=== PATIENT | female | born 1940 | race Caucasian/White ===

== ENCOUNTER 2017-11-24 18:26 | Inpatient (IN) ==
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
--- NOTE | 2017-11-24 21:17 | CT ---
EXAM DATE: 11/24/2017 8:58 PM EDT AGE/SEX: 76 years / Female INDICATIONS: Altered mental status. CLINICAL DATA: This is the patient's initial encounter. Patient reports that signs and symptoms have been present for 1 day and indicates a pain score of 0/10. MEDICAL/SURGICAL HISTORY: . Brain tumor. None. RADIATION DOSE: 56.35 CTDI (mGy) COMPARISON: No prior exams available for comparison. TECHNIQUE: CT of the head without contrast. Using automated exposure control and adjustment of the mA and/or kV according to patient size, radiation dose was kept as low as reasonably achievable to ob tain optimal diagnostic quality images. DICOM format image data is available electronically for revi ew and comparison. FINDINGS: Cerebrum: The ventricles are normal for age. No evidence of midline shift, mass lesion, hemorrhage or acute infarction. No extraaxial fluid collections are seen. Mild encephalomalacia is seen in the right frontal lobe. Patient has had a previous right frontal craniotomy. Posterior Fossa: The cerebellum and brainstem are intact. The 4th ventricle is midline. The cerebe llopontine angle is unremarkable. Extracranial: The visualized portion of the orbits is intact. Skull: Previous right frontal craniotomy. The calvaria is acutely intact. No evidence of skull frac ture. CONCLUSION: 1. No acute intracranial abnormality demonstrated. 2. Surgical changes of the right frontal lobe. No perceptible recurrent mass on these noncontrast im ages. . Electronically signed by: Markus Briones MD 11/24/2017 9:16 PM EDT
[2017-11-24 22:16] LABS: Baso # (Auto) 0.1 th/mm3 (0.0-0.2); Baso % (Auto) 1.4 % (0.0-2.0); Eos # (Auto) 0.4 th/mm3 (0.0-0.4); Eos % (Auto) 5.9 % (0.0-4.0); Hematocrit 39.5 % (35.0-46.0); Hemoglobin 12.9 gm/dL (11.6-15.3); Lymph # (Auto) 2.8 th/mm3 (1.0-4.8); Lymph % (Auto) 41.8 % (9.0-44.0); Mean Corpuscular HGB Conc 32.8 % (32.0-36.0); Mean Corpuscular Hemoglobin 30.4 pg (27.0-34.0); Mean Corpuscular Volume 92.6 fL (80.0-100.0); Mean Platelet Volume 8.5 fL (7.0-11.0); Mono # (Auto) 0.8 th/mm3 (0.0-0.9); Mono % (Auto) 12.5 % (0.0-8.0); Neut # (Auto) 2.6 th/mm3 (1.8-7.7); Neut % (Auto) 38.4 % (16.0-70.0); Platelet Count 358 th/mm3 (150-450); Red Blood Count 4.26 mil/mm3 (4.00-5.30); Red Cell Distribution Width 14.3 % (11.6-17.2); White Blood Count 6.7 th/mm3 (4.0-11.0)
[2017-11-24 22:47] LABS: Alanine Aminotransferase 24 U/L (10-53); Albumin 3.8 g/dL (3.4-5.0); Anion Gap 9 meq/L (5-15); Aspartate Aminotransferase 22 U/L (15-37); Blood Urea Nitrogen 17 mg/dL (7-18); Calcium 9.6 mg/dL (8.5-10.1); Carbon Dioxide 28.8 meq/L (21.0-32.0); Chloride 105 meq/L (98-107); Glomerular Filtration Rate 73 mL/min (>89); Glucose,Random 82 mg/dL (74-106); Sodium 143 meq/L (136-145)
[2017-11-24 22:57] LABS: Alkaline Phosphatase 130 U/L (45-117); Total Protein 8.7 g/dL (6.4-8.2)
[2017-11-24 23:22] LABS: Bilirubin,Urine Negative (Negative); Clarity,Urine Clear (Clear); Color,Urine Yellow (Yellw/Straw); Glucose,Urine (UA) Negative (Negative); Leukocyte Esterase,Urine Trace (Negative); Nitrite,Urine Negative (Negative); Specific Gravity,Urine 1.012 (1.002-1.035); Squamous Epithelial Cell,Urine 1 /hpf (0-5)
[2017-11-24 23:29] LABS: Amphetamine Screen,Urine Neg (Neg); Barbiturate Screen,Urine Neg (Neg); Cannabinoid Screen,Urine Neg (Neg); Cocaine Screen,Urine Neg (Neg)
[2017-11-24 23:43] LABS: Opiate Screen,Urine Neg (Neg)
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
[2017-11-25] MEDS ORDERED: Aluminum/Magnesium/Simethacone Susp 30 ML UDC PO PRN (09:40)
[2017-11-25] MEDS ORDERED: LORazepam 0.5 MG Tablet PO PRN (09:40)
[2017-11-25] MEDS: levETIRAcetam 500 MG Tablet PO SCH ×2 (17:43→20:37)
[2017-11-25] MEDS: Senna/Docusate Sodium 8.6/50 MG Tablet PO SCH (20:37)
[2017-11-25] MEDS: ALPRAZolam 0.25 MG Tablet PO SCH (20:38)
[2017-11-26 10:01] LABS: Calcium 9.7 mg/dL (8.5-10.1); Carbon Dioxide 29.7 meq/L (21.0-32.0); Potassium 4.1 meq/L (3.5-5.1)
[2017-11-26 10:05] LABS: Chol/HDL Ratio 3.39 Ratio; HDL Cholesterol 46.2 mg/dL (40.0-60.0)
[2017-11-26] MEDS: Senna/Docusate Sodium 8.6/50 MG Tablet PO SCH ×2 (10:09→21:25)
[2017-11-26] MEDS: Escitalopram 10 MG Tablet PO SCH (10:10)
[2017-11-26] MEDS: levETIRAcetam 500 MG Tablet PO SCH ×2 (10:10→21:25)
[2017-11-26] MEDS: ALPRAZolam 0.25 MG Tablet PO SCH ×2 (10:10→21:25)
[2017-11-26 16:10] LABS: Hemoglobin A1c 5.5 % (4.3-6.0)
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
--- NOTE | 2017-11-26 17:41 | P.PN ---
Physical Exam Vital signs: Vital Signs 11/25/17 18:26 11/26/17 05:09 Temperature 97.3 F L 97.6 F Pulse Rate 98 H 77 Respiratory Rate 20 16 Blood Pressure 123/65 156/87 H Pulse Oximetry 95 93 L Intake & Output 11/25/17 11/26/17 11/26/17 18:59 06:59 18:59 Weight 84.3 kg 84.9 kg Other: Weight On Admission 84.3 kg Results - Labs CBC & Chem 7: 11/24/17 19:29 11/26/17 08:53 Laboratory Results - last 24 hr 11/26/17 11/26/17 08:53 08:53 Sodium 142 Potassium 4.1 Chloride 105 Carbon Dioxide 29.7 Anion Gap 7 BUN 15 Creatinine 0.86 Estimated GFR 64 L Random Glucose 86 Hemoglobin A1c 5.5 Calcium 9.7 Triglycerides 124 Cholesterol 157 LDL Cholesterol, Calc 86 HDL Cholesterol 46.2 Cholesterol/HDL Ratio 3.39
--- NOTE | 2017-11-26 17:41 | P.CON ---
History of Present Illness Service: [facility] Consult date: 11/26/17 Requesting Physician: Jaya Fuchs Reason for Consult: Assist with medical management Primary Care Provider: David Dominguez MD Chief Complaint: "nervous breakdown, headache" History of Present Illness: Patient is a 76-year-old female with past medical history of hysterectomy, seizure, brain tumor who initially came into the hospital under [place] act by police department. Review of records patient allegedly had to take an intentional overdose of Xanax approximately 6 tablets. Patient is now admitted to inpatient psychiatry and for further evaluation. Consulted for assistance with medical management. Patient seen and examined today. She is calm and collected. States that she has a brain lesion that she had chemotherapy and radiation treatment about 2 weeks ago. States that she needs 15 cycles to complete. She said her next cycle would be dictated by her oncologist in the [place] area Dr. Lacey. Patient states that she came into the hospital because she had a nervous breakdown regarding her who is trying to sell her house. Denies SI/HI. States she just had a breakdown and deep depression. Complaints of headache, weakness, constipation. Denies pain and discomfort. Denies SOB/ dyspnea. Denies chest pain, palpitations, headaches, dizziness. Denies fevers, chills, n/ v/d. Denies dysuria. Review of Systems All other systems reviewed negative except as stated in HPI PMFSH - History History Provided By: Patient - Medical History Medical History: Medical History (Last Updated 11/26/17 @ 17:57 by ASHLEY Monge) H/O: hysterectomy (Acute) Anxiety FH: chemotherapy FH: radiation therapy Seizures - Surgical History Surgical History: Surgical History (Last Reviewed 11/26/17 @ 17:55 by ASHLEY Monge) H/O brain surgery - Family History Family History: Family History (Last Updated 11/26/17 @ 17:58 by ASHLEY Monge) Other Parents - Social History I have reviewed the patient's Social History: Yes - Tobacco History Second Hand Smoke Exposure: No Smoking Status: Never smoker - Alcohol History How Often Do You Have a Drink Containing Alcohol: 4 or more times a week - Substance Use History Substance History: No History of Abuse - Travel History Recent Travel in the [facility] Within the Last 8 Weeks: No Recent Travel Out of the Country Within the Last 8 Weeks: No - Immunization History Tetanus Immunization: Unsure Hx Influenza Vaccine This Season: No Medications and Allergies Active Medications: Active Medications Acetaminophen (Tylenol) 650 mg PO Q4H PRN PRN Reason: PAIN 1-10 AND/OR FEVER >101F Al Hydrox/Mg Hydrox/Simethicone (Mag-Al Plus Susp Liq) 30 ml PO Q6H PRN PRN Reason: DYSPEPSIA Al Hydroxide/Mg Hydroxide (Milk Of Magnesia Liq) 30 ml PO Q12H PRN PRN Reason: Mild Constipation Alprazolam (Xanax) 0.25 mg PO BID [facility] Last Admin: 11/26/17 10:10 Dose: 0.25 mg Atorvastatin Calcium (Lipitor) 40 mg PO DAILY [facility] Last Admin: 11/26/17 10:05 Dose: 40 mg Escitalopram Oxalate (Lexapro) 10 mg PO DAILY [facility] Last Admin: 11/26/17 10:10 Dose: 10 mg Levetiracetam (Keppra) 500 mg PO Q12HR [facility] Last Admin: 11/26/17 10:10 Dose: 500 mg Lorazepam (Ativan) 0.5 mg PO Q12H PRN PRN Reason: MODERATE TO SEVERE ANXIETY Senna/Docusate Sodium ([place]-Colace) 1 tab PO BID [facility] Last Admin: 11/26/17 10:09 Dose: 1 tab Allergies Allergy/AdvReac Type Severity Reaction Status Date / Time No Allergy Information Allergy Unverified 11/24/17 19:32 Available Home Medications Medication Instructions Recorded Confirmed Type alprazolam [Xanax] 0.25 mg PO BID 11/24/17 11/25/17 History atorvastatin [Lipitor] 40 mg PO DAILY 11/25/17 11/25/17 History escitalopram oxalate [Lexapro] 10 mg PO DAILY 11/25/17 11/25/17 History hydrocodone-acetaminophen [[place]] 1 tab PO Q12HR PRN 11/25/17 11/25/17 History levetiracetam [Keppra] 500 mg PO Q12H 11/25/17 11/25/17 History Physical Exam Vital signs: Vital Signs 11/25/17 18:26 11/26/17 05:09 Temperature 97.3 F L 97.6 F Pulse Rate 98 H 77 Respiratory Rate 20 16 Blood Pressure 123/65 156/87 H Pulse Oximetry 95 93 L Intake & Output 11/25/17 11/26/17 11/26/17 18:59 06:59 18:59 Weight 84.3 kg 84.9 kg Other: Weight On Admission 84.3 kg Narrative: GENERAL: This is a well-nourished, well-developed patient, in no apparent distress. SKIN: Warm and dry. HEENT: Normocephalic. Pupils equal round and reactive. Nose without bleeding. Airway patent. NECK: Trachea midline. CARDIOVASCULAR: Regular rate and rhythm without murmurs, gallops, or rubs. RESPIRATORY: Clear to auscultation. Breath sounds equal bilaterally. No wheezes , rales, or rhonchi. GASTROINTESTINAL: Abdomen soft, non-tender, nondistended. Bowel Sounds normoactive x4. MUSCULOSKELETAL: Extremities without clubbing, cyanosis. Trace edema bilateral lower extremity NEUROLOGICAL: Awake and alert. No focal neuro deficit. Moves all extremities. Normal speech. Assessment and Plan - Plan Patient is a 76-year-old female with past medical history of hysterectomy, seizure, brain tumor who initially came into the hospital under [place] act by police department. Review of records patient allegedly had to take an intentional overdose of Xanax approximately 6 tablets. Patient is now admitted to inpatient psychiatry and for further evaluation. Consulted for assistance with medical management. Suicidal ideation, depression, anxiety -Managed by psychiatry team Brain tumor Seizure -Continue home medication -Head CT shows no acute intracranial abnormality demonstrated, surgical changes of the right frontal lobe. No perceptible recurrent mass on this noncontrast images. -She will need to follow-up with her oncologist in the outpatient setting for possible continuation of treatment. -Seizure precaution -Tylenol for headache QT prolongation -EKG reviewed with QTC greater than 500 -Possibly related to benzo overdose -Repeat EKG tomorrow -Avoid QT prolongation medication Thyroid nodule reported -TSH within normal 1.930 -Will need thyroid US in 4 weeks to compare in the outpatient DVT prop ambulation Code Status: Full code Discussed Condition With: Patient, nurse Discharge Planning: DC disposition by primary team
--- NOTE | 2017-11-26 18:25 | ECG ---
Date Performed: 11/26/2017 Time Performed: 11:18:34 PTAGE: 76 years EKG: Sinus rhythm LEFT BUNDLE BRANCH BLOCK ABNORMAL ECG NO PREVIOUS TRACING DOCTOR: Gabriel Castillo Interpretating Date/Time 11/26/2017 18:24:16
[2017-11-27] MEDS: Senna/Docusate Sodium 8.6/50 MG Tablet PO SCH ×2 (09:33→20:37)
[2017-11-27] MEDS: levETIRAcetam 500 MG Tablet PO SCH ×2 (09:33→20:38)
[2017-11-27] MEDS: ALPRAZolam 0.25 MG Tablet PO SCH ×2 (09:36→20:38)
[2017-11-27] MEDS: Escitalopram 10 MG Tablet PO SCH (09:37)
[2017-11-27] MEDS: Acetaminophen 325 MG Tablet PO PRN ×2 (12:07→20:37)
--- NOTE | 2017-11-27 16:50 | P.PN ---
Subjective Interval history: Follow-up visit brain tumor, seizure, suicidal ideation, QT prolongation. Patient seen and examined today. Reports she is doing really well. States that she has improved every day. Denies SI/HI. Denies pain and discomfort. Denies SOB/ dyspnea. Denies chest pain, palpitations, headaches, dizziness. Denies fevers, chills, n/v/d. Denies dysuria. Physical Exam Vital signs: Vital Signs 11/26/17 18:00 11/27/17 06:02 Temperature 98.3 F 97.7 F Pulse Rate 60 85 Respiratory Rate 16 16 Blood Pressure 122/57 L 154/80 H Pulse Oximetry 97 95 Narrative: GENERAL: This is a well-nourished, well-developed patient, in no apparent distress. SKIN: Warm and dry. HEENT: Normocephalic. Pupils equal round and reactive. Nose without bleeding. Airway patent. NECK: Trachea midline. CARDIOVASCULAR: Regular rate and rhythm without murmurs, gallops, or rubs. RESPIRATORY: Clear to auscultation. Breath sounds equal bilaterally. No wheezes , rales, or rhonchi. GASTROINTESTINAL: Abdomen soft, non-tender, nondistended. Bowel Sounds normoactive x4. MUSCULOSKELETAL: Extremities without clubbing, cyanosis. Trace edema bilateral lower extremity NEUROLOGICAL: Awake and alert. No focal neuro deficit. Moves all extremities. Normal speech. Results - Labs CBC & Chem 7: 11/24/17 19:29 11/26/17 08:53 Laboratory Results - last 24 hr 11/26/17 08:53 Hemoglobin A1c 5.5 Assessment and Plan - Plan Patient is a 76-year-old female with past medical history of hysterectomy, seizure, brain tumor who initially came into the hospital under [place] act by police department. Review of records patient allegedly had to take an intentional overdose of Xanax approximately 6 tablets. Patient is now admitted to inpatient psychiatry and for further evaluation. Consulted for assistance with medical management. Suicidal ideation, depression, anxiety -Managed by psychiatry team Brain tumor Seizure -Continue home medication -Head CT shows no acute intracranial abnormality demonstrated, surgical changes of the right frontal lobe. No perceptible recurrent mass on this noncontrast images. -She will need to follow-up with her oncologist in the outpatient setting for possible continuation of treatment. -Seizure precaution -Tylenol for headache QT prolongation -EKG reviewed with QTC greater than 500 -Possibly related to benzo overdose -Repeat EKG unchanged. QTc improved 548 -->519 -Avoid QT prolongation medication -If patient continues to stays at the facility, repeat EKG Thursday or Thursday. Thyroid nodule reported -TSH within normal 1.930 -Will need thyroid US in 4 weeks to compare in the outpatient. Repeat TSH in 4 - 6 weeks in the outpatient. -Unable to locate US. DVT prop ambulation Code Status: Full code Discussed Condition With: Patient, nursing Discharge Planning: DC disposition by primary team
--- NOTE | 2017-11-27 18:55 | P.PNPSY ---
Subjective Remarks: Patient seen for follow up; chart review. Discussion with nursing staff reported that patient with no behavioral issues, pleasant, isolative. Patient was found lying on hospital bed, noted to be calm and cooperative. Patient states feeling "good", sleeping well, continues with decreased energy, adequate concentration and appetite. Patient states that she has always had difficulty with making friends and that she had no one to talk to and is now interested in engaging in individual therapy. She reports feeling less depressed, denies SI and mood being "good". Review of Systems All other systems reviewed negative except as stated in HPI Mental Status Examination Appearance: Appropriate Consciousness: Alert Orientation: x4 Motor Activity: Normal gait Speech: Unremarkable Language: Adequate Fund of Knowledge: Adequate Attention and Concentration: Adequate Memory: Unremarkable Mood: Sad, Irritable Affect: Appropriate Thought Process & Associations: Intact, Logical, Goal directed Thought Content: Appropriate Hallucination Type: None Delusion Type: None Suicidal Ideation: Yes (denies at this time) Suicidal Plan: No Suicidal Intention: No Homicidal Ideation: No Homicidal Plan: No Homicidal Intention: No Insight: Fair Judgment: Impulsive Assessment and Plan - Assessment (1) Adjustment disorder Code(s): F43.20 - Adjustment disorder, unspecified Status: Acute - Plan Plan: Patient noted to be less depressed, wanting to engage in therapy and denying any suicidal ideation today. Hospitalist input appreciated. Repeat EKG with Qtc continues to be prolonged at 519ms. Will continue current treatment, continue to monitor mood and behavior. Discharge planning in progress. Justification for Continued Inpatient Stay: At risk for further decompensation at lower level of care. (1) Adjustment disorder Qualifiers: Adjustment disorder type: with depressed mood Qualified Code(s): F43.21 - Adjustment disorder with depressed mood
[2017-11-28] MEDS: Escitalopram 10 MG Tablet PO SCH (09:19)
[2017-11-28] MEDS: ALPRAZolam 0.25 MG Tablet PO SCH ×2 (09:19→21:22)
[2017-11-28] MEDS: Senna/Docusate Sodium 8.6/50 MG Tablet PO SCH ×2 (09:19→21:22)
[2017-11-28] MEDS: levETIRAcetam 500 MG Tablet PO SCH ×2 (09:20→21:22)
[2017-11-28] MEDS: Acetaminophen 325 MG Tablet PO PRN (09:23)
--- NOTE | 2017-11-28 14:03 | P.PN ---
Subjective Interval history: Follow-up visit brain tumor, seizure, suicidal ideation, QT prolongation. Patient seen and examined today. Reports feeling a lot better. Denies SI/HI. Denies pain and discomfort. Denies SOB/ dyspnea. Denies chest pain, palpitations, headaches, dizziness. Denies fevers, chills, n/v/d. Denies dysuria. Physical Exam Vital signs: Vital Signs 11/27/17 18:21 11/27/17 20:00 11/28/17 05:59 Temperature 98.1 F 97.6 F Pulse Rate 83 73 Respiratory Rate 16 Blood Pressure 148/93 H 133/70 Pulse Oximetry 94 L 94 L Intake & Output 11/27/17 11/28/17 11/28/17 18:59 06:59 18:59 Intake Total 240 / 240 Balance 240 / 240 Intake: Oral 240 / 240 Other: Date of Last Bowel Movement 11/27/17 Narrative: GENERAL: This is a well-nourished, well-developed patient, in no apparent distress. SKIN: Warm and dry. HEENT: Normocephalic. Pupils equal round and reactive. Nose without bleeding. Airway patent. NECK: Trachea midline. CARDIOVASCULAR: Regular rate and rhythm without murmurs, gallops, or rubs. RESPIRATORY: Clear to auscultation. Breath sounds equal bilaterally. No wheezes , rales, or rhonchi. GASTROINTESTINAL: Abdomen soft, non-tender, nondistended. Bowel Sounds normoactive x4. MUSCULOSKELETAL: Extremities without clubbing, cyanosis. Trace edema bilateral lower extremity NEUROLOGICAL: Awake and alert. No focal neuro deficit. Moves all extremities. Normal speech. Results - Labs CBC & Chem 7: 11/24/17 19:29 11/26/17 08:53 Assessment and Plan - Plan Patient is a 76-year-old female with past medical history of hysterectomy, seizure, brain tumor who initially came into the hospital under [place] act by police department. Review of records patient allegedly had to take an intentional overdose of Xanax approximately 6 tablets. Patient is now admitted to inpatient psychiatry and for further evaluation. Consulted for assistance with medical management. Suicidal ideation, depression, anxiety -Managed by psychiatry team Brain tumor Seizure -Continue home medication -Head CT shows no acute intracranial abnormality demonstrated, surgical changes of the right frontal lobe. No perceptible recurrent mass on this noncontrast images. -She will need to follow-up with her oncologist in the outpatient setting for possible continuation of treatment. -Seizure precaution -Tylenol for headache QT prolongation -EKG reviewed with QTC greater than 500 -Possibly related to benzo overdose -Repeat EKG unchanged. QTc improved 548 -->519 -Avoid QT prolongation medication -Repeat EKG Thursday or Thursday -Follow up EKG. Extensively discussed with patient. Thyroid nodule reported -TSH within normal 1.930 -Will need thyroid US in 4 weeks to compare in the outpatient. Repeat TSH in 4 - 6 weeks in the outpatient. -Unable to locate US. DVT prop ambulation Code Status: Full Code Discussed Condition With: Patient, nurse Discharge Planning: DC disposition by primary team
--- NOTE | 2017-11-28 15:48 | P.PNPSY ---
Subjective Remarks: Reviewed electronic medical records and discussed case with staff. Follow-up was conducted in patient's room with BALJEET Flaherty present. Patient found lying on bed awake. She states that she feels "good". There was some rectus earlier over the missing sure however, that has been resolved. She reports that she has been sleeping well and her appetite has been good. Her mood is good her affect is euthymic. Mental Status Examination Appearance: Appropriate Consciousness: Alert Orientation: x4 Motor Activity: Normal gait Speech: Unremarkable Language: Adequate Fund of Knowledge: Adequate Attention and Concentration: Adequate Memory: Unremarkable Mood: Sad, Irritable Affect: Appropriate Thought Process & Associations: Intact, Logical, Goal directed Thought Content: Appropriate Hallucination Type: None Delusion Type: None Suicidal Ideation: Yes (denies at this time) Suicidal Plan: No Suicidal Intention: No Homicidal Ideation: No Homicidal Plan: No Homicidal Intention: No Insight: Fair Judgment: Impulsive Assessment and Plan - Assessment (1) Adjustment disorder Code(s): F43.20 - Adjustment disorder, unspecified Status: Acute - Plan Plan: Patient will be reevaluated Thursday by the attending psychiatrist. Continue with current treatment plan. Justification for Continued Inpatient Stay: Moving this patient to a less restrictive environment would likely result in decompensation. (1) Adjustment disorder Qualifiers: Adjustment disorder type: with depressed mood Qualified Code(s): F43.21 - Adjustment disorder with depressed mood
--- NOTE | 2017-11-28 22:26 | ECG ---
Date Performed: 11/27/2017 Time Performed: 10:01:43 PTAGE: 76 years EKG: Sinus rhythm MARKED LEFT AXIS DEVIATION LEFT BUNDLE BRANCH BLOCK ABNORMAL ECG PREVIOUS TRACING : 11/26/2017 11.18 DOCTOR: Italo Uriarte Interpretating Date/Time 11/28/2017 22:20:18
[2017-11-29] MEDS: Acetaminophen 325 MG Tablet PO PRN ×2 (09:56→20:54)
[2017-11-29] MEDS: Escitalopram 10 MG Tablet PO SCH (09:57)
[2017-11-29] MEDS: Senna/Docusate Sodium 8.6/50 MG Tablet PO SCH ×2 (09:58→20:55)
[2017-11-29] MEDS: ALPRAZolam 0.25 MG Tablet PO SCH ×2 (09:58→20:55)
[2017-11-29] MEDS: levETIRAcetam 500 MG Tablet PO SCH ×2 (09:58→20:55)
--- NOTE | 2017-11-29 13:53 | ECG ---
Date Performed: 11/29/2017 Time Performed: 11:59:45 PTAGE: 76 years EKG: Sinus rhythm MARKED LEFT AXIS DEVIATION LEFT BUNDLE BRANCH BLOCK ABNORMAL ECG PREVIOUS TRACING : 11/27/2017 10.01 DOCTOR: Italo Uriarte Interpretating Date/Time 11/29/2017 13:51:21
[2017-11-29 14:19] VITALS: RESP 12
--- NOTE | 2017-11-29 14:47 | P.PNPSY ---
Subjective Chief Complaint: Adjustment Disorder Remarks: Reviewed electronic medical records and discussed case with staff. Follow-up was conducted in patient's room with Winter. Patient states she is tired today. Complaining of chronic back pain that makes it difficult for her to sleep. She is currently constipated and Winter will follow up with some medication. She feels that she has intermittent anxiety related to concerns with her family. She is eating well. She does participate in unit activities. Denies suicidal ideations. Review of Systems All other systems reviewed negative except as stated in HPI Mental Status Examination Appearance: Appropriate Consciousness: Alert Orientation: x4 Motor Activity: Normal gait Speech: Unremarkable Language: Adequate Fund of Knowledge: Adequate Attention and Concentration: Adequate Memory: Unremarkable Mood: Sad, Irritable Affect: Appropriate Thought Process & Associations: Intact, Logical, Goal directed Thought Content: Appropriate Hallucination Type: None Delusion Type: None Suicidal Ideation: No (denies at this time) Suicidal Plan: No Suicidal Intention: No Homicidal Ideation: No Homicidal Plan: No Homicidal Intention: No Insight: Fair Judgment: Impulsive Assessment and Plan - Assessment (1) Adjustment disorder Code(s): F43.20 - Adjustment disorder, unspecified Status: Acute - Plan Plan: Continue with current plan of care. Psychiatry will follow up on Thursday. Justification for Continued Inpatient Stay: Moving patient to a lower level of care may result in her decompensation. (1) Adjustment disorder Qualifiers: Adjustment disorder type: with depressed mood Qualified Code(s): F43.21 - Adjustment disorder with depressed mood
--- NOTE | 2017-11-29 15:09 | P.PN ---
Subjective Interval history: Follow-up visit brain tumor, seizure, suicidal ideation, QT prolongation. Patient seen and examined today. Reports feeling well. Denies SI/HI. Denies pain and discomfort. Denies SOB/ dyspnea. Denies chest pain, palpitations, headaches, dizziness. Denies fevers, chills, n/v/d. Denies dysuria. Physical Exam Vital signs: Vital Signs 11/28/17 18:00 11/29/17 04:56 11/29/17 10:30 Temperature 97.7 F 98.8 F Pulse Rate 80 77 Respiratory Rate 17 16 12 Blood Pressure 175/83 H 152/83 H Pulse Oximetry 94 L 95 Intake & Output 11/28/17 11/29/17 11/29/17 18:59 06:59 18:59 Intake Total 240 / 240 360 / 360 Balance 240 / 240 360 / 360 Intake: Oral 240 / 240 360 / 360 Other: Date of Last Bowel Movement 11/27/17 Narrative: GENERAL: This is a well-nourished, well-developed patient, in no apparent distress. SKIN: Warm and dry. HEENT: Normocephalic. Pupils equal round and reactive. Nose without bleeding. Airway patent. NECK: Trachea midline. CARDIOVASCULAR: Regular rate and rhythm without murmurs, gallops, or rubs. RESPIRATORY: Clear to auscultation. Breath sounds equal bilaterally. No wheezes , rales, or rhonchi. GASTROINTESTINAL: Abdomen soft, non-tender, nondistended. Bowel Sounds normoactive x4. MUSCULOSKELETAL: Extremities without clubbing, cyanosis. Trace edema bilateral lower extremity NEUROLOGICAL: Awake and alert. No focal neuro deficit. Moves all extremities. Normal speech. Results - Labs CBC & Chem 7: 11/24/17 19:29 11/26/17 08:53 Assessment and Plan - Plan Patient is a 76-year-old female with past medical history of hysterectomy, seizure, brain tumor who initially came into the hospital under [place] act by police department. Review of records patient allegedly had to take an intentional overdose of Xanax approximately 6 tablets. Patient is now admitted to inpatient psychiatry and for further evaluation. Consulted for assistance with medical management. Suicidal ideation, depression, anxiety -Managed by psychiatry team Brain tumor Seizure -Continue home medication -Head CT shows no acute intracranial abnormality demonstrated, surgical changes of the right frontal lobe. No perceptible recurrent mass on this noncontrast images. -She will need to follow-up with her oncologist in the outpatient setting for possible continuation of treatment. -Seizure precaution -Tylenol for headache QT prolongation -EKG reviewed with QTC greater than 500 -Possibly related to benzo overdose -Repeat EKG unchanged. QTc improving 548 -->519 -Avoid QT prolongation medication -Follow-up EKG reviewed QTC improved within normal 439 Thyroid nodule reported -TSH within normal 1.930 -Will need thyroid US in 4 weeks to compare in the outpatient. Repeat TSH in 4 - 6 weeks in the outpatient. -Unable to locate US. DVT prop ambulation Stable from Hospitalist standpoint. We will sign off. Reconsult as needed. Thank you. Code Status: Full Code Discussed Condition With: Patient, nursing Discharge Planning: DC disposition by primary team
[2017-11-30] MEDS: Acetaminophen 325 MG Tablet PO PRN ×3 (04:27→16:27)
[2017-11-30 05:58] VITALS: BP 165/79; PULSE 83; TEMP 98.1; O2SAT 93
[2017-11-30] MEDS: ALPRAZolam 0.25 MG Tablet PO SCH (09:37)
[2017-11-30] MEDS: levETIRAcetam 500 MG Tablet PO SCH (09:37)
[2017-11-30] MEDS: Senna/Docusate Sodium 8.6/50 MG Tablet PO SCH (09:37)
[2017-11-30] MEDS: Escitalopram 10 MG Tablet PO SCH (09:37)
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
== END 2017-11-30 18:35 | disposition home or self-care (01) ==
LOC: NEDAMB 18:26 → NEDA 11-25 09:39 → H260 11-25 11:35
PROVIDERS: ADMIT Student in an Organized Health Care Education/Training Program; ATTEND Student in an Organized Health Care Education/Training Program